=== PATIENT | female | born 1985 | race Caucasian/White ===

== ENCOUNTER 2019-10-06 13:32 | Day surgery (SDC) | payer OTHER ==
[~2019-10-06] VITALS: Ht 170.2 cm; Wt 89.0 kg
[2019-10-06] MEDS ORDERED: CELE100C PO (14:03)
[2019-10-06 14:05] VITALS: BP 118/81
[2019-10-06] MEDS ORDERED: METH4TAB2 PO (14:05)
[2019-10-06] MEDS ORDERED: MELO15TA6 PO (14:05)
[2019-10-06] MEDS ORDERED: LACTATED RINGERS 1,000 ML IV SCH (14:12)
[2019-10-06] MEDS ORDERED: CHLORHEXIDINE 15 ML UDC MM STA (14:13)
[2019-10-06] MEDS ORDERED: CHLORHEXIDINE 15 ML UDC ONE (14:20)
[2019-10-06] MEDS ORDERED: DULO30CA2 PO (14:41)
[2019-10-06] MEDS ORDERED: PREG25CA PO (14:41)
[2019-10-06] MEDS ORDERED: ACETAMINOPHEN 500 MG TABLET PO ONE (15:00)
[2019-10-06] MEDS ORDERED: GABAPENTIN 300 MG CAPSULE PO ONE (15:00)
[2019-10-06] MEDS ORDERED: LABETALOL 5MG/ML, 20ML IV PRN (16:00)
[2019-10-06] MEDS ORDERED: hydrALAzine 20 MG/ML, 1ML IV PRN (16:00)
[2019-10-06] MEDS ORDERED: HYDROmorphone 1 MG/ML, 1ML INJ IVPush PRN (16:00)
[2019-10-06] MEDS ORDERED: PROMETHAZINE 25 MG/ML, 1ML IVPush PRN (16:00)
[2019-10-06] MEDS ORDERED: ONDANSETRON 2MG/ML, 2ML IVPush PRN (16:00)
[2019-10-06] MEDS ORDERED: MEPERIDINE/PF 25MG/0.5ML IVPush PRN (16:00)
[2019-10-06] MEDS ORDERED: FENTANYL PF 100 MCG/2ML IV PRN (16:00)
[2019-10-06] MEDS ORDERED: OXYcodone 5 MG/5 ML ORAL.SOL UDC PO PRN (16:00)
[2019-10-06] MEDS ORDERED: EPHEDRINE 50 MG/ML, 1ML IVPush PRN (16:00)
[2019-10-06] MEDS ORDERED: MIDAZOLAM 1 MG/ML, 2ML ONE (16:03)
[2019-10-06] MEDS ORDERED: FENTANYL PF 100 MCG/2ML ONE (16:03)
[2019-10-06] MEDS ORDERED: LIDOCAINE PF 2%, 5ML ONE (17:00)
[2019-10-06] MEDS ORDERED: KETOROLAC 30 MG/1 ML ONE (17:08)
[2019-10-06] MEDS ORDERED: BUPIVACAINE/PF 0.5% ONE (17:09)
[2019-10-06] MEDS ORDERED: EPINEPHRINE 1 MG/ML, 1ML INFIL ONE (17:55)
[2019-10-06] MEDS ORDERED: SUCCINYLCHOLINE 20 MG/ML, 10ML ONE (18:36)
[2019-10-06] MEDS ORDERED: ONDANSETRON 2MG/ML, 2ML ONE (18:36)
[2019-10-06] MEDS ORDERED: CEFAZOLIN 1,000 MG ONE (18:36)
[2019-10-06] MEDS ORDERED: PROPOFOL 10 MG/ML, 20ML ONE (18:36)
[2019-10-06] MEDS ORDERED: DEXAMETHASONE 4 MG/ML, 1ML ONE (18:36)
[2019-10-06] MEDS ORDERED: ROPIvacaine/PF 0.2%, 100ML 550 ML (check volume) INJ ONE ×2 (19:00)
[2019-10-06] MEDS ORDERED: ASPI-496 PO (20:40)
== END 2019-10-06 21:40 | disposition home or self-care (01) ==
LOC: OR 13:32 → 4NE 20:11 → OR 21:40
PROVIDERS: ATTEND Orthopaedic Surgery
DX: M25.371 Other instability, right ankle (principal); Z11.59 Encounter for screening for other viral diseases; M76.71 Peroneal tendinitis, right leg; G90.521 Complex regional pain syndrome I of right lower limb; F17.210 Nicotine dependence, cigarettes, uncomplicated; Z79.899 Other long term (current) drug therapy; Z72.89 Other problems related to lifestyle; Z88.0 Allergy status to penicillin; Z88.8 Allergy status to other drugs, medicaments and biological substances
CPT/HCPCS: 27680; 27695; 29898; 64447; 81025; C1713; J0171; J0330; J0690; J1100; J1885; J2250; J2405; J2704; J3010; J7120; U0001; G0378